=== PATIENT | male | born 1985 | race African-American/Black ===

== ENCOUNTER 2017-05-05 00:20 | Emergency (ER) | payer OTHER ==
--- NOTE | 2017-05-05 00:53 | Emergency Department Report ---
HPI - General Chief Complaint: Allergic Reaction Time Seen by Provider: 05/05/17 00:48 - HPI HPI: 31-year-old male brought to the ED after being stung by bees. 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 EMS was called upon arrival they give patient 0.3 mg subcutaneous epi, 15 mg IV Benadryl, normal saline 500 mL. Patient stated he felt better immediately. ED Past Medical Hx - Past Medical History Previous Medical History?: No - Surgical History Past Surgical History?: No - Family History Family history: hypertension - Social History Smoking Status: Never Smoker Substance Use Type: None - Medications Home Medications: Home Medications Medication Instructions Recorded Confirmed Last Taken Type Magnesium Oxide [Mag-Ox] 400 mg PO QDAY 05/05/17 05/05/17 Unknown History hydrOXYzine HCL [Atarax] 25 mg PO Q6HR PRN #30 tablet 05/05/17 Unknown Rx methylPREDNISolone [Medrol] 4 mg PO QAM #1 tab.ds.pk 05/05/17 Unknown Rx ED Review of Systems ROS: Stated complaint: ALLERGIC REACTION Other details as noted in HPI Comment: All other systems reviewed and negative Respiratory: shortness of breath Cardiovascular: chest pain Physical Exam - Physical Exam Vital Signs: Vital Signs 05/05/17 00:34 Temperature 99.2 F Pulse Rate 115 H Respiratory 16 Rate Blood Pressure 127/77 O2 Sat by Pulse 99 Oximetry Physical Exam: - General Limitations: No Limitations General appearance: alert, in no apparent distress - Head Head exam: Present: atraumatic, normocephalic - Eye Eye exam: Present: normal appearance, EOMI. Absent: nystagmus - ENT ENT exam: Present: normal exam, normal orophraynx, mucous membranes moist, normal external ear exam - Neck Neck exam: Present: normal inspection, full ROM. Absent: tenderness, meningismus - Respiratory Respiratory exam: Present: normal lung sounds bilaterally. Absent: respiratory distress, wheezes, rales, rhonchi, stridor, chest wall tenderness, accessory muscle use, decreased breath sounds, prolonged expiratory - Cardiovascular Cardiovascular Exam: Present: regular rate, normal rhythm, normal heart sounds. Absent: bradycardia, tachycardia, irregular rhythm, systolic murmur, diastolic murmur, rubs, gallop - GI/Abdominal GI/Abdominal exam: Present: soft, normal bowel sounds. Absent: distended, tenderness, guarding, rebound, rigid, pulsatile mass - Rectal Rectal exam: Present: deferred - Extremities Exam Extremities exam: Present: - Back Exam Back exam: Present: normal inspection, full ROM. Absent: tenderness, CVA tenderness (R), CVA tenderness (L), muscle spasm, paraspinal tenderness, vertebral tenderness - Neurological Exam Neurological exam: Present: alert, oriented X3, normal gait, other (Extraocular movements intact. Tongue midline. No facial droop. Facial sensation intact to light touch in the V1, V2, V3 distribution bilaterally. 5 and 5 strength in 4 extremities.. Sensation is intact to light touch in 4 extremities.). Absent : motor sensory deficit - Psychiatric Psychiatric exam: Present: Normal affect - Skin Skin exam: Present: Diffuse urticaria. ED Course Vital Signs 05/05/17 00:34 Temperature 99.2 F Pulse Rate 115 H Respiratory 16 Rate Blood Pressure 127/77 O2 Sat by Pulse 99 Oximetry Critical care attestation.: If time is entered above; I have spent that time in minutes in the direct care of this critically ill patient, excluding procedure time. ED Disposition Clinical Impression: Acute allergic reaction Qualifiers: Encounter type: initial encounter Qualified Code(s): T78.40XA - Allergy, unspecified, initial encounter Disposition: - TO HOME OR SELFCARE Is pt being admited?: No Does the pt Need Aspirin: No Condition: Stable Prescriptions: hydrOXYzine HCL [Atarax] 25 mg PO Q6HR PRN #30 tablet PRN Reason: Itching methylPREDNISolone [Medrol] 4 mg PO QAM #1 tab.ds.pk
[2017-05-05] MEDS ORDERED: PEPCID IV ONE (02:05)
[2017-05-05] MEDS ORDERED: ADRENALINE P/F SUB-Q ONE (02:05)
[2017-05-05] MEDS ORDERED: NACL 0.9% 1000 ML 1,000 ML IV ONE (02:06)
[2017-05-05] MEDS ORDERED: BENADRYL IV ONE (02:06)
[2017-05-05] MEDS ORDERED: ADRENALIN ONE (02:21)
[2017-05-05 04:31] VITALS: BP 126/72
--- NOTE | 2017-05-05 07:25 | XRay Report ---
ROUTINE CHEST, TWO VIEWS: HISTORY: Allergic reaction, shortness of breath. The trachea, heart, mediastinal contour, lung omer and bony thorax are unremarkable. IMPRESSION: Unremarkable chest x-ray.
== END 2017-05-05 04:20 | disposition home or self-care (01) ==
LOC: ED 00:20
DX: T78.40XA Allergy, unspecified, initial encounter (principal)
CPT/HCPCS: 71020; 96361; 96372; 96374; 96375; 99284; J0171; J1200; J2930; J7030

== ENCOUNTER 2022-03-03 22:31 | Emergency (ER) | payer OTHER ==
[2022-03-04] MEDS ORDERED: dexAMETHasone 4 MG/ML VIAL IM ONE (00:31)
[2022-03-04] MEDS ORDERED: diphenhydrAMINE 25 MG CAP PO STA (00:32)
--- NOTE | 2022-03-04 01:19 | Emergency Department Report ---
ED Allergic Reaction HPI - General Chief complaint: Allergic Reaction Stated complaint: REACTION YELLOW JACKET/WASP STING SWOLLEN ARM Time Seen by Provider: 03/04/22 00:28 Source: patient Mode of arrival: Ambulatory Limitations: No Limitations - History of Present Illness Initial Comments: 36-year-old male presents emerged department today status post being stung by a wasp while fixing area on his deck. He was stung on the left arm 3 times resulting in pain redness and swelling. Shortly after the stinging he began to develop hives that he reports taking EpiPen and or prednisone but has been out of the pending results since initiating in began experiencing more redness and swelling when he woke up this morning. He was able to enjoy the majority of his father stable clinic to have his arm evaluated before waiting to 12 MD Complaint: allergic reaction -: Gradual, days(s) (2) Exposure: insect bite (Stung by wasp x3 to the left arm) Symptoms: itching. denies: lip swelling, difficulty swallowing, difficulty breathing, orolingual swelling, hoarseness, nausea, other Severity: mild - Related Data Home Medications Medication Instructions Recorded Confirmed Last Taken Magnesium Oxide [Mag-Ox] 400 mg PO QDAY 05/05/17 05/05/17 Unknown Previous Rx's Medication Instructions Recorded Last Taken Type EPINEPHrine [Epipen 2-Azar] 0.3 mg IM ONCE PRN #2 auto.injct 05/05/17 Unknown Rx methylPREDNISolone [Medrol] 4 mg PO QAM #1 tab.ds.pk 05/05/17 Unknown Rx Famotidine [Pepcid] 40 mg PO QHS #20 03/04/22 Unknown Rx hydrOXYzine HCL [Atarax] 25 mg PO Q6HR PRN #30 tablet 03/04/22 Unknown Rx predniSONE [Deltasone] 50 mg PO QDAY #5 tab 03/04/22 Unknown Rx Allergies Allergy/AdvReac Type Severity Reaction Status Date / Time insect venom Allergy Anaphylaxis Verified 05/05/17 00:44 venom-wasp [wasp venom] Allergy Anaphylaxis Verified 05/05/17 00:45 ED Review of Systems ROS: Stated complaint: REACTION YELLOW JACKET/WASP STING SWOLLEN ARM Other details as noted in HPI Comment: All other systems reviewed and negative ED Past Medical Hx - Past Medical History Previous Medical History?: No - Surgical History Past Surgical History?: No - Social History Smoking Status: Never Smoker Substance Use Type: None - Medications Home Medications: Home Medications Medication Instructions Recorded Confirmed Last Taken Type EPINEPHrine [Epipen 2-Azar] 0.3 mg IM ONCE PRN #2 auto.injct 05/05/17 Unknown Rx Magnesium Oxide [Mag-Ox] 400 mg PO QDAY 05/05/17 05/05/17 Unknown History methylPREDNISolone [Medrol] 4 mg PO QAM #1 tab.ds.pk 05/05/17 Unknown Rx Famotidine [Pepcid] 40 mg PO QHS #20 03/04/22 Unknown Rx hydrOXYzine HCL [Atarax] 25 mg PO Q6HR PRN #30 tablet 03/04/22 Unknown Rx predniSONE [Deltasone] 50 mg PO QDAY #5 tab 03/04/22 Unknown Rx ED Physical Exam - General Limitations: No Limitations General appearance: alert, in no apparent distress - Head Head exam: Present: atraumatic, normocephalic - Eye Eye exam: Present: normal appearance, PERRL, EOMI Pupils: Present: normal accommodation - ENT ENT exam: Present: normal exam, normal orophraynx, mucous membranes dry, mucous membranes moist, TM's normal bilaterally - Neck Neck exam: Present: normal inspection - Respiratory Respiratory exam: Present: normal lung sounds bilaterally. Absent: respiratory distress - Cardiovascular Cardiovascular Exam: Present: regular rate, normal rhythm. Absent: systolic murmur, diastolic murmur, rubs, gallop - GI/Abdominal GI/Abdominal exam: Present: soft, normal bowel sounds - Rectal Rectal exam: Present: deferred - Extremities Exam Extremities exam: Present: normal inspection - Expanded Upper Extremity Exam Left Upper Arm exam: Present: tenderness, swelling, erythema, other (3 sting lantigua to the posterior aspect of the arm). Absent: abrasion, laceration, ecchymosis, deformity Elbow exam: Present: normal inspection, full ROM, tenderness, swelling - Back Exam Back exam: Present: normal inspection - Neurological Exam Neurological exam: Present: alert, oriented X3 - Psychiatric Psychiatric exam: Present: normal affect, normal mood - Skin Skin exam: Present: warm, dry, intact, normal color. Absent: rash ED Course Vital Signs 03/03/22 03/04/22 23:23 00:51 Temperature 98.6 F Pulse Rate 97 H Respiratory 18 Rate Blood Pressure 126/63 O2 Sat by Pulse 96 98 Oximetry Critical care attestation.: If time is entered above; I have spent that time in minutes in the direct care of this critically ill patient, excluding procedure time. ED Disposition Clinical Impression: Bee sting reaction Disposition: 01 HOME / SELF CARE / HOMELESS Is pt being admited?: No Does the pt Need Aspirin: No Condition: Stable Instructions: Preventing Poisoning, Adult, Bee, Wasp, or Hornet Sting, Adult Prescriptions: hydrOXYzine HCL [Atarax] 25 mg PO Q6HR PRN #30 tablet PRN Reason: Itching predniSONE [Deltasone] 50 mg PO QDAY #5 tab Famotidine [Pepcid] 40 mg PO QHS #20 Referrals: [facility] [Provider Group] - 3-5 Days
[2022-03-04 01:20] VITALS: BP 120/75
== END 2022-03-04 01:40 | disposition home or self-care (01) ==
LOC: ED 22:31
DX: T63.441A Toxic effect of venom of bees, accidental (unintentional), initial encounter (principal); Y92.89 Other specified places as the place of occurrence of the external cause; Z91.030 Bee allergy status; Z91.09 Other allergy status, other than to drugs and biological substances; Z79.899 Other long term (current) drug therapy
CPT/HCPCS: 96372; 99282; J1100